=== PATIENT | male | born 1980 | race Caucasian/White ===

== ENCOUNTER → 2022-04-20 12:33 | Outpatient (CLI) | payer OTHER, SELFPAY ==
--- NOTE | 2022-04-20 | DI.ECHO.S_ITS ---
[facility] +---------+ : : [address] [place] : : : : [id number] : : : : Phone: [phone]+ Echocardiogram Report + + :Name: EUNICE RAMOS Study Date: 04/20/2022 Height: 70 in : :[facility] ReadingLocation: Weight: 225 lb : : Gender: Male BSA: 2.2 m2 : :: 1980 Age: 41 yrs BP: 120/86 mmHg: :Reason For Study: Family history of Amyloidosis : :Ordering Physician: CARMEN, : :SEVERO Performed By: Jose Hanson : :Referring: SEVERO GUARDADO : + + Interpretation Summary 1) Normal left ventricular thickness, size, wall motion, and systolic function (EF 55-60%). 2) Normal right ventricular size and function. 3) No significant valvular abnormalities. 4) No prior Echo available for comparison. Procedure: A two-dimensional transthoracic echocardiogram with color flow and Doppler was performed. The study quality was technically adequate. There is no prior echocardiogram noted for this patient. The patient was in normal sinus rhythm during the exam. Left Ventricle: The left ventricle is normal in size and wall thickness. Left ventricular systolic function is normal. The ejection fraction is estimated to be 55-60%. There are no focal wall motion abnormalities. Diastolic parameters suggest probable normal left ventricular diastolic function and normal filling pressures. Right Ventricle: The right ventricle is normal in size and function. Atria: Both atria are normal in size. The interatrial septum grossly appears intact with no obvious evidence for an atrial septal defect. Mitral Valve: The mitral valve is normal in structure and function. There is trace mitral regurgitation. Aortic Valve: The aortic valve is normal in structure and function. There is no aortic valve stenosis. No aortic regurgitation is present. Tricuspid Valve: The tricuspid valve is normal in structure and function. No tricuspid regurgitation. Pulmonary artery pressures cannot be estimated because of the lack of a measurable TR jet velocity. Pulmonic Valve: The pulmonic valve is normal in structure and function. There is no pulmonic valvular regurgitation. Great Vessels: The aortic root is normal size. The dimensions of the ascending aorta are normal. The IVC is of normal diameter and collapses greater than 50% with a sniff. This suggests a low right atrial pressure of 3 mm Hg. Pericardium/ Pleura There is no pericardial effusion. There is no pleural effusion. MMode/2D Measurements & Calculations LVIDd: 5.7 cm LVOT diam: 2.3 cm LVIDs: 3.7 cm Ao root diam: 3.3 cm FS: 34.4 % asc Aorta Diam: 3.4 cm IVSd: 0.94 cm LVPWd: 0.70 cm LV cannon. diameter/BSA (cm/m^2): 2.6 LV sys. diameter/BSA (cm/m^2): 1.7 LA A2 area: 21.3 cm2 RA long axis: 4.7 cm LA A4 area: 19.1 cm2 RA area: 13.7 cm2 LA length (vol): 5.2 cm RA vol: 33.7 ml LA vol: 66.8 ml RA : 15.3 ml/m2 LA vol index: 30.4 ml/m2 TAPSE: 2.3 cm Doppler Measurements & Calculations Ao V2 max: 117.0 cm/sec LVOT Max Fernando: 101.3 cm/sec Ao V2 mean: 84.7 cm/sec LV V1 max P.1 mmHg Ao max P.5 mmHg LV V1 VTI: 19.5 cm Ao mean P.2 mmHg PAN(I,D): 3.7 cm2 Ao V2 VTI: 22.7 cm PAN(V,D): 3.7 cm2 sev ratio: 0.86 PAN indexed to BSA (cm^2/m^2): 1.7 MV E max fernando: 74.3 cm/sec SV(LVOT): 84.0 ml MV A max fernando: 67.5 cm/sec MV E/A: 1.1 Med Peak E' Fernando: 9.1 cm/sec E/E' med: 8.2 Lat Peak E' Fernando: 17.1 cm/sec E/E' lat: 4.3 E/e' average: 6.3 MV dec time: 0.17 sec Reading Physician:09:45 AM
== END ==
PROVIDERS: PCP Family Medicine Sports Medicine; Referring Provider Internal Medicine Cardiovascular Disease; Visit Provider Internal Medicine Cardiovascular Disease
DX: Z13.29 Encounter for screening for other suspected endocrine disorder (principal); Z13.228 Encounter for screening for other metabolic disorders; Z83.49 Family history of other endocrine, nutritional and metabolic diseases
CPT/HCPCS: 93306